=== PATIENT | female | born 1950 | race Caucasian/White ===

== ENCOUNTER 2018-10-05 15:09 | Inpatient (IN) | payer MEDICARE, OTHER ==
[2018-10-05 16:05] VITALS: BP 134/87
[2018-10-05] MEDS ORDERED: Maalox 30 mL Cup PO PRN (18:39)
[2018-10-05] MEDS ORDERED: Magnesium Hydroxide (MOM) 30 mL UDC PO PRN (18:39)
[2018-10-06 08:39] LABS: CHOLESTEROL 170 mg/dL (<200); HDL -HIGH DENSITY LIPOPROTEIN 47 mg/dL (23-92); TRIGLYCERIDES 119 mg/dL (<150)
[2018-10-06] MEDS: Multivitamin Tab PO SCH (08:52)
--- NOTE | 2018-10-06 13:16 | Psychiatric Evaluation ---
DATE OF SERVICE: 10/05/2018 IDENTIFYING DATA: The patient is a 68-year-old woman, , currently visiting her daughter in [place]. Information obtained by directly interviewing the patient as well as reviewing the admission papers. JUSTIFICATION FOR HOSPITALIZATION: The patient is admitted on a 5150 as a danger to self. CHIEF COMPLAINT: "I am upset." HISTORY OF PRESENT ILLNESS: This is the first psychiatric hospitalization to [facility] for this patient who is reported to have been diagnosed to have bipolar disorder and the patient is reported to have threatened to cut her tongue away and hence the patient has been placed on 5150 and transferred over here for stabilization. During the evaluation, the patient is noted to be hyperactive, hyperverbal and has been going on and on. The patient is stating that she might have never her and stating that she has a stepdaughter, she came to visit her from [place], and the patient is stating that she could not figure it out that she is going to be ending up in here. PAST PSYCHIATRIC HISTORY: Please refer the above. MEDICAL HISTORY: Denies. PHYSICAL EXAMINATION: Requested to be done by Dr. Mancini. SUBSTANCE ABUSE HISTORY: None. PHYSICAL AND SEXUAL ABUSE HISTORY: None. LEGAL PROBLEMS: None at this time. SOCIAL HISTORY: The patient is . is in [place]. MENTAL STATUS EXAMINATION: The patient is a 68-year-old woman, thin built, superficially cooperative. Eye contact is poor. Mood is noted to be irritable. Affect is constricted. Insight and judgment at this time are noted to be impaired. Impulse control is noted to be poor. Coping skills are also noted to be very poor. The patient is hyperverbal. The patient is also noted to be suicidal; the patient wants to cut her tongue away. The patient is not homicidal. The patient is going on a tangent. DIAGNOSTIC IMPRESSION: AXIS I: Bipolar disorder, depressed, with psychotic symptoms. Rule out schizoaffective disorder. AXIS II: None. AXIS III: As per Dr. Mancini. IMMEDIATE TREATMENT PLAN: The patient is going to be observed on inpatient unit, provided with supportive psychotherapy. The patient is going to be encouraged to verbalize the concerns rather than to act out. Once stabilized, the patient is going to be discharged to [facility] to be followed up on an outpatient basis. The patient is going to be started on Depakote and Zyprexa. [facility]# [id number]
[2018-10-07] MEDS: Multivitamin Tab PO SCH (08:27)
[2018-10-07] MEDS ORDERED: Haloperidol Lactate 5 mg/mL 1mL Vial IM ONE (16:22)
[2018-10-07] MEDS ORDERED: Haloperidol Lactate 5 mg/mL 1mL Vial ONE (16:25)
--- NOTE | 2018-10-07 21:03 | Progress Notes ---
DATE: 10/07/2018 PSYCHIATRIC PROGRESS NOTE SUBJECTIVE: Staff was spoken to. The patient is interviewed. Mood is noted to be irritable. Affect is constricted. Insight and judgment at this time are noted to be still impaired. Impulse control is noted to be limited. Coping skills are noted to be limited. The patient has been having difficult time to cope with the stress. The patient has been having acute mood swings and has been getting into other people's rooms and telling him not to take the medication. The patient has to be given a dose of the Ativan to calm her down. ASSESSMENT: The patient is still psychotic and impulsive and having acute mood swings. PLAN: To continue the patient with the supportive therapy, encouraged the patient to verbalize the concerns rather than to act out. JOB# [id number]
[2018-10-08] MEDS: Acetaminophen 500 MG TAB PO PRN ×3 (02:37→22:38)
[2018-10-08] MEDS: Multivitamin Tab PO SCH (08:26)
--- NOTE | 2018-10-08 11:56 | Consultation ---
DATE OF CONSULTATION: 10/07/2018 REFERRING PHYSICIAN: Erlinda Jaffe MD TYPE OF CONSULTATION: Psychology. HISTORY OF PRESENT ILLNESS: The patient is a 68-year-old female. The following is by review of the medical record and by the patient's self-report. The patient is being admitted on a 5150 as a danger to self. According to record review, the patient has a history of bipolar disorder and had verbalized a threat to cut out her tongue. The patient apparently is visiting her daughter and traveled here from [place]. The patient is having difficulty understanding why she has been hospitalized. The patient declined to answer whether she is experiencing suicidal ideation, plan or intention at the time of this clinical evaluation. The patient admits that she stated something about her tongue to her daughter. PAST MEDICAL HISTORY: Please see history and physical by Dr. Mancini. PAST PSYCHIATRIC HISTORY: The record indicates a history of bipolar disorder as reported by the patient's daughter. There are no other records available. SUBSTANCE ABUSE HISTORY: The patient denied any history. PSYCHOSOCIAL HISTORY: The patient is and lives in [place] with her . The patient traveled here from [place] to visit her daughter in [place]. The patient indicated that her daughter is actually her stepdaughter. This needs further verification. The patient did not answer questions about occupational or educational history or yarsanism affiliation. The patient denied any history of physical or sexual abuse. The patient denied any current legal problems. MENTAL STATUS EXAMINATION: The patient appears to be her stated age. The patient is thinly built. Attitude is superficially cooperative. Eye contact is poor. Mood is irritable. Affect is constricted. Speech is rambling, pressured and hyperverbal. Thought process shows to be markedly tangential. The patient denied any auditory or visual hallucinations. There may be nonspecific delusional content to the patient's thought. This needs further evaluation. The patient denied suicidal ideation, plan or intention. However, the patient does admit that she verbalized removing her tongue or cutting her tongue away. Behavior is easily agitated. Impulse control is inadequate. Concentration is poor. Coping skills are very poor. The patient is considered suicidal at the time of this clinical interview. Sensorium is alert and oriented to self only. The patient did not participate in the memory assessment. The patient did not participate in the interpretation of proverbs. Insight is impaired. Judgment is impaired. DIAGNOSTIC IMPRESSION: AXIS I: Bipolar disorder, depressed with psychotic symptoms; rule out Schizoaffective disorder. AXIS II: Deferred. AXIS III: Per Dr. Mancini. TREATMENT PLAN: The patient has been seen by Dr. Jaffe for psychiatric evaluation and for the management of the patient's psychotropic medications. We will provide supportive psychotherapy to include reality orientation, differentiation and integration. We will provide limit setting and de-escalation. We will encourage the patient on a daily basis to verbally contract for safety and no self-harm. We will provide motivational enhancement for the patient to become compliant and stay compliant with all aspects of her care and treatment. We will provide coping strategies for phase of life issues as well as for chronic severe mental illness. We will encourage the patient to verbalize her concerns and disclose any suicidal thought. We recommend outpatient access to family systems therapy upon discharge to decrease stressors and prevent risk of suicidal ideation. We will recommend a follow up with psychiatry as well. Thank you, Dr. Jaffe for this consult and the opportunity to participate in this patient's care. [facility]# [id number] GENA
--- NOTE | 2018-10-08 22:56 | Progress Notes ---
DATE: 10/08/2018 SUBJECTIVE: Staff was spoken to. The patient is interviewed. Mood is noted to be irritable. Affect is constricted. Insight and judgment are noted to be still impaired. Impulse control is noted to be poor. Coping skills are also noted to be very poor. The patient has to be given a dose of the Haldol to calm her down. The patient has been testing the limits at this time. ASSESSMENT: The patient is still psychotic, very acute mood swings. PLAN: To continue the patient with the supportive therapy and followup. JOB# [id number]
[2018-10-09] MEDS: Multivitamin Tab PO SCH (09:03)
--- NOTE | 2018-10-09 19:26 | Progress Notes ---
DATE: 10/09/2018 SUBJECTIVE: Staff was spoken to. The patient is interviewed. Mood is noted to be anxious. The patient has paranoid delusions, but denies any command hallucinations. Insight and judgment are noted to be still impaired. Impulse control is noted to be poor. Coping skills are noted to be very poor. The patient has been pacing most of the time on the unit. The patient is currently on valproic acid 250 mg twice a day and olanzapine is being given at 10 mg in the morning, but the patient has been mentioning that the medication is making her to be too sleepy and she is afraid she is going to fall down and hence it is decided to change the olanzapine to bedtime and discontinue the haloperidol and follow the patient with the supportive therapy. ASSESSMENT: The patient is still psychotic and impulsive. PLAN: To continue the patient with the supportive therapy, closely monitor the patient for aggressive behavior and followup. JOB# [id number]
[2018-10-09] MEDS: Acetaminophen 500 MG TAB PO PRN (23:11)
[2018-10-10] MEDS: Multivitamin Tab PO SCH (09:00)
[2018-10-10] MEDS ORDERED: OLANZapine 5 mg Oral Disintegrating Tab PO ONE (12:38)
--- NOTE | 2018-10-10 13:34 | Progress Notes ---
DATE: 10/10/2018 SUBJECTIVE: The patient was seen, chart reviewed, discussed with staff. Still intrusive, anxious, irritable. The patient said her is crazy and she is not a crazy one. The patient is still pacing on the unit, talking to herself, requires constant redirection. MENTAL STATUS EXAM: Speech is rapid. Affect is dysphoric, irritable, labile. The patient appears to be paranoid. She is oriented to person and being in the hospital. ASSESSMENT: The patient still in psychotic phase, highly agitated. PLAN: We will continue Zyprexa 5 mg p.o. b.i.d. Continue supportive measures. Continue Depakote 500 mg p.o. b.i.d. JOB# [id number]
[2018-10-11] MEDS: Multivitamin Tab PO SCH (08:09)
--- NOTE | 2018-10-11 18:06 | Progress Notes ---
DATE: 10/11/2018 SUBJECTIVE: The patient was seen, discussed with staff. Still restless, anxious, irritable, still hyper talkative, was visiting and the patient and I spoke with about the patient's condition. MENTAL STATUS EXAM: Speech still rapid. Affect is dysphoric. The patient is still somewhat paranoid and fearful. The patient, however, denied having auditory hallucination. She is oriented x 3. PLAN: We will continue supportive measures. Continue Depakote 500 mg p.o. b.i.d., olanzapine 5 mg p.o. b.i.d. JOB# [id number]
[2018-10-11] MEDS: Acetaminophen 500 MG TAB PO PRN (20:52)
[2018-10-12] MEDS: Multivitamin Tab PO SCH (08:45)
--- NOTE | 2018-10-12 18:39 | Progress Notes ---
DATE: 10/12/2018 SUBJECTIVE: The patient was seen, chart reviewed. The patient remains anxious, irritable, easily agitated, yelling at staff. The patient is argumentative and she requires constant redirecting. Mental status and speech is rapid. Affect is dysphoric. The patient remains paranoid. Memory calculation fund of knowledge still impaired. ASSESSMENT: The patient is still in psychotic phase, still on a manic side. PLAN: We will increase Zyprexa to 7.5 mg p.o. b.i.d. Monitor closely. The patient does not appear to have any sedation. JOB# [id number]
[2018-10-13] MEDS: Multivitamin Tab PO SCH (08:14)
--- NOTE | 2018-10-14 04:14 | Progress Notes ---
DATE: 10/13/2018 SUBJECTIVE: Staff was spoken to. The patient is interviewed. Mood is noted to be irritable. Affect is constricted. The patient is very grandiose and has been focusing on other people. The patient is very impulsive at this time. The patient is not able to contract for safety. The patient has been on valproic acid 500 mg twice a day and olanzapine 7.5 mg b.i.d.. Even then, the patient has not been able to contract for safety. The patient has been extremely anxious and has been having difficult time to cope with the stress. The patient is stating that she is not able to relax. The patient is stating that she is better than anyone and has been having difficult time to cope with the stress. The patient has been having lot of concerns with anxiety. The patient is also stating that I need to contact her to see if she can be discharged back to him. ASSESSMENT: The patient is still having acute mood swings and impulsive. The patient is still psychotic. PLAN: To continue the patient with the supportive therapy and current medications and add a little bit of Klonopin for anxiety concerns. Plan to continue the patient with supportive therapy, encourage the patient to verbalize the concerns rather than to act out. JOB# [id number]
[2018-10-14] MEDS: Multivitamin Tab PO SCH (08:37)
--- NOTE | 2018-10-14 19:47 | History & Physical ---
ADMIT DATE: 10/14/2018 REASON FOR ADMISSION: Psychiatric disorder. HISTORY OF PRESENT ILLNESS: This is a 68-year-old female, who was admitted for underlying psychiatric illness by Dr. Saravia. Dr. Saravia requested a medical H and P on this patient. The patient denies any medical complaints or concerns. PAST MEDICAL HISTORY: No significant past medical history reported. PAST SURGICAL HISTORY: No significant past surgical history reported. SOCIAL HISTORY: Lives at nursing facility. No reported alcohol, tobacco, or drug use. CURRENT MEDICATIONS: Per medication reconciliation. ALLERGIES: None noted. REVIEW OF SYSTEMS: No reported fever, no diarrhea, no vomiting, no chest pain or trouble breathing reported. PHYSICAL EXAMINATION: VITAL SIGNS: Temperature 97.5, pulse 66, respirations 16, blood pressure 106/48. HEART: S1, S2 normal. LUNGS: Clear to auscultation. ABDOMEN: Soft, nontender. EXTREMITIES: No edema. NEUROLOGIC: The patient is awake, but confused. Moves all extremities. AVAILABLE LABORATORY DATA: . ASSESSMENT: Psychiatric disorders. PLAN: The patient will be continued on current psychotropic medications. Psych evaluation and management per psychiatrist. Monitor vitals. Fall precautions, aspiration precautions. Plan of care discussed with nursing staff. JOB# [id number]
--- NOTE | 2018-10-15 02:40 | Progress Notes ---
DATE: 10/14/2018 SUBJECTIVE: Staff was spoken to. The patient is interviewed. Mood is noted to be irritable. Affect is constricted. Insight and judgment are noted to be still impaired. Impulse control noted to be limited. The patient is talking nonstop. The patient has no insight into her illness. Coping skills are noted to be extremely poor. ASSESSMENT: The patient is still grossly psychotic. PLAN: To increase the dose on the Zyprexa to 10 mg twice a day and add lithium carbonate 300 mg twice a day and follow the patient with the supportive therapy and followup. JOB# [id number]
[2018-10-15] MEDS: Multivitamin Tab PO SCH (08:51)
[2018-10-15] MEDS: Acetaminophen 500 MG TAB PO PRN (11:10)
--- NOTE | 2018-10-16 05:12 | Progress Notes ---
DATE: 10/15/2018 SUBJECTIVE: Staff was spoken to. The patient is interviewed. Mood is noted to be irritable. Affect is constricted. The patient is still having mood swings. The patient has paranoid delusions, but the rapidity of the speech has been coming down. No side effects to the medications are noted. ASSESSMENT: The patient is still psychotic. PLAN: Continue the patient with supportive therapy and follow up. JOB# [id number]
[2018-10-16] MEDS: Multivitamin Tab PO SCH (08:25)
--- NOTE | 2018-10-17 02:26 | Progress Notes ---
DATE: 10/16/2018 PSYCHIATRIC PROGRESS NOTE SUBJECTIVE: Staff was spoken to. The patient is interviewed. Mood is noted to be less irritable. Pressured speech has been coming down. The patient's sleep is noted to be improving. No side effects to the medications are noted. Coping skills are noted to be improving. The patient has been able to participate in the groups minimally and no major behavioral problems are reported by the staff today. ASSESSMENT: The patient's mood swings are coming under control and psychosis seems to be resolving. PLAN: The case advocate has been informed to begin touch with the patient's and try to come up with a discharge planning of this patient. JOB# [id number]
[2018-10-17] MEDS: Multivitamin Tab PO SCH (08:56)
--- NOTE | 2018-10-17 19:58 | Progress Notes ---
DATE: 10/17/2018 PSYCHIATRIC PROGRESS NOTE SUBJECTIVE: Staff was spoken to. The patient is interviewed. Mood is noted to be anxious. The patient is stating that she has been following the directions and has been complying with the medication and is stating that she should be okay to go be there with her daughter or with her in [place]. manager client service has been able to find a place for this patient and if the patient is able to secure the placement, possibly the patient is going to be discharged today for followup on outpatient basis. Currently, the patient is on Depakote and lithium carbonate and has been able to tolerate the medication. ASSESSMENT: The patient is stabilizing. PLAN: To discharge the patient once the placement is secured. JOB# [id number]
== END 2018-10-17 14:30 | DRG 885 ==
LOC: GERO 15:09
DX: F31.30 Bipolar disorder, current episode depressed, mild or moderate severity, unspecified (principal); F39 Unspecified mood [affective] disorder; F41.9 Anxiety disorder, unspecified
CPT/HCPCS: 36415-UA; 80061-TC; 82948-90; 83036-90; J1200; J1630; J2060; J7051; Z7610